=== PATIENT | male | born 1990 | race Caucasian/White ===

== ENCOUNTER 2016-07-10 23:27 | Emergency (ER) | payer SELFPAY ==
[2016-07-10 23:35] VITALS: BP 120/75; PULSE 78; RESP 20; TEMP 100.1
--- NOTE | 2016-07-11 00:11 | ED ---
General Adult HPI - General Chief complaint: Extremity Injury, Lower Stated complaint: back & leg pain Time Seen by Provider: 07/10/16 23:48 Source: patient, family, RN notes reviewed Mode of arrival: ambulatory Limitations: no limitations - History of Present Illness Initial comments: This is a 25-year-old male presents with bilateral leg pain and back pain that started on Tuesday and has gotten gradually worse. Patient states the pain is worse when he is up and walking. Patient states the pain shoots up his legs starting at the feet. Patient complains of some lower back pain. Patient denies any change in bowel or bladder function or loss of sensation to the saddle area. Patient denies any numbness/weakness or tingling. Patient is able to ambulate. Patient denies any fall or injury. Patient states he does heavy lifting at work, approximately 200 pounds per hour. Patient admits to a mild headache but denies cough, congestion, sore throat or otalgia. Patient denies any recent fever, chills, shortness breath, chest pain, abdominal pain, nausea/vomiting/diarrhea, hematuria, or visual changes, or any other complaints. - Related Data Home Medications Medication Instructions Recorded Confirmed No Known Home Medications [No 07/10/16 07/10/16 Known Home Medications] Allergies Allergy/AdvReac Type Severity Reaction Status Date / Time No Known Allergies Allergy Verified 07/10/16 23:35 Review of Systems ROS Statement: Those systems with pertinent positive or pertinent negative responses have been documented in the HPI. ROS Other: All systems not noted in ROS Statement are negative. Past Medical History Past Medical History: No Reported History History of Any Multi-Drug Resistant Organisms: None Reported Past Surgical History: No Surgical Hx Reported Past Psychological History: ADD/ADHD Smoking Status: Current every day smoker Past Alcohol Use History: Rare Past Drug Use History: Marijuana General Exam - General Exam Comments Initial Comments: General: The patient is awake and alert, in no distress, and does not appear acutely ill. Eye: Pupils are equal, round and reactive to light, extra-ocular movements are intact. No nystagmus. There is normal conjunctiva bilaterally. No signs of icterus. Ears: TMs pink and pearly with intact cone of light bilaterally. Normal external ear canals Nose: Nasal turbinates pink and moist Mouth and throat: There are moist mucous membranes and no oral lesions. No meningismus. Neck: The neck is supple, there is no tenderness or JVD. Cardiovascular: There is a regular rate and rhythm. No murmur, rub or gallop is appreciated. Respiratory: Lungs are clear to auscultation, respirations are non-labored, breath sounds are equal. No wheezes, stridor, rales, or rhonchi. Musculoskeletal: There is tenderness to palpation over the lumbar spine. There is generalized soreness to palpation of the posterior lower extremities bilaterally. Negative straight leg raise. Normal ROM. Strength 5/5. Sensation intact. Radial, posterior tibial and dorsalis pedis Pulses equal bilaterally 2+ . No swelling noted to bilateral lower extremities. Neurological: A&O x 3. CN II-XII intact, There are no obvious motor or sensory deficits. Coordination appears grossly intact. Speech is normal. Skin: Skin is warm and dry and no rashes or lesions are noted. Psychiatric: Cooperative, appropriate mood & affect, normal judgment. Limitations: no limitations Course Vital Signs 07/10/16 23:30 Temperature 100.1 F H Pulse Rate 78 Respiratory 20 Rate Blood Pressure 120/75 O2 Sat by Pulse 98 Oximetry Medical Decision Making - Medical Decision Making This is a 25-year-old male who presents with soreness in the back of his legs 5 days. On physical exam There is tenderness to palpation over the lumbar spine. There is generalized soreness to palpation of the posterior lower extremities bilaterally. Negative straight leg raise. Normal ROM. Strength 5/ 5. Sensation intact. Radial, posterior tibial and dorsalis pedis Pulses equal bilaterally 2+. Patient has a fever in the EC today. Patient was given ibuprofen in the EC today. I rechecked the patient's temperature and it was 98.0 F. X-ray lumbar spine was done and reviewed showing: #1 no acute fracture is seen in the lumbar spine. #2 minor wedge compression deformity of T11 and T12 are most likely old. #3 minor retrolisthesis of L5 on S1 vertebra of chronic nature. #4 minor degenerative changes. Reported by Dr. Adler. Influenza and rapid strep was done and both came back negative. Discussed results with patient. Discussed that this is most likely musculoskeletal pain from chronic lifting at work. Patient states he can lift up to 200 pounds an hour at work. Discussed [id number] Tylenol and or Motrin as needed for any pain. Discussed rest, ice and heat to the areas of pain. Discussed return parameters. Discussed that patient should follow-up with his primary care physician in one to 2 days or return to the EC for any worsening symptoms or for any further concerns. Patient and are receptive to this plan and patient will be discharged home. - Lab Data Lab Results 07/11/16 07/11/16 Range/Units 00:20 00:20 Influenza Type A RNA Not Detected (Not Detectd) Influenza Type B (PCR) Not Detected (Not Detectd) Group A Strep Rapid Negative (Negative) Disposition Clinical Impression: Back pain, Leg pain, Muscle pain Disposition: HOME SELF-CARE Condition: Good Instructions: Back Pain (ED) Additional Instructions: Please rest and use ice or heating pads to the areas of pain. Please continue use of Tylenol or Motrin as needed for any pain. Please follow-up with your primary care physician in one to 2 days or return to the EC for any worsening symptoms or for any further concerns. Referrals: None,Stated [Primary Care Provider] - 1-2 days Rosalee Fonseca MD [REFERRING] - 1-2 days Neda Jewell MD [STAFF PHYSICIAN] - 1-2 days Time of Disposition: 01:05
[2016-07-11] MEDS ORDERED: IBUPROFEN 400 MG TAB PO STA (00:31)
--- NOTE | 2016-07-11 00:48 | XR ---
EXAMINATION TYPE: XR lumbar spine 2 or 3V DATE OF EXAM: 07/11/2016 12:27 AM CLINICAL HISTORY: Complains of low back pain history of back injury in childhood. TECHNIQUE: Frontal, lateral images of the lumbar spine are obtained. COMPARISON: None FINDINGS: There is minor retrolisthesis of L5 on S1 vertebra and is of probably chronic nature. Minor wedge com pression deformity of T11 and T12 vertebrae are most likely old. No definite acute fracture is noted in the lumbar spine. Minor degenerative changes are suggested in the lumbar spine. IMPRESSION: 1. No acute fracture is seen in the lumbar spine. 2. Minor wedge compression deformity of T11 and T12 are most likely old. 3. Minor retrolisthesis of L5 on S1 vertebra of chronic nature. 4. Minor degenerative changes.
== END 2016-07-11 01:12 | disposition home or self-care (01) ==
LOC: EC 23:27
DX: M54.5 Low back pain (principal); M79.605 Pain in left leg; M79.604 Pain in right leg; M79.1 Myalgia; R51 Headache; F17.200 Nicotine dependence, unspecified, uncomplicated
CPT/HCPCS: 72100; 87081; 87430; 87502; 99283

== ENCOUNTER 2018-01-15 04:53 | Emergency (ER) | payer OTHER ==
[2018-01-15 04:58] VITALS: BP 137/90; PULSE 53; RESP 18; TEMP 98.4
--- NOTE | 2018-01-15 05:07 | ED ---
ENT HPI - General Chief complaint: Dental/Oral Stated complaint: Facial Swelling Time Seen by Provider: 01/15/18 05:06 Source: patient Mode of arrival: ambulatory Limitations: no limitations - History of Present Illness Initial comments: Luis is a 27-year-old male who presents to the emergency department for right- sided dental pain. Patient reports that approximately one month ago he developed dental pain and dental abscess, he was seen in an emergency dental clinic advised that he needed surgical intervention to remove a tooth, he was treated at that time with a short course of by mouth penicillin which he reports improved his symptoms significantly. Patient has not scheduled a subsequent follow-up for dental extraction because he has been asymptomatic. Patient presents to the emergency department today with report that 2 days of right-sided facial swelling and dental pain identical in nature to previous dental infection. Eyes any associated symptoms including fevers, chills, nausea or vomiting. - Related Data Previous Rx's Medication Instructions Recorded Clindamycin [Cleocin] 450 mg PO Q6H #28 capsule 01/15/18 Allergies Allergy/AdvReac Type Severity Reaction Status Date / Time No Known Allergies Allergy Verified 01/15/18 04:57 Review of Systems ROS Statement: Those systems with pertinent positive or pertinent negative responses have been documented in the HPI. ROS Other: All systems not noted in ROS Statement are negative. Past Medical History Past Medical History: No Reported History History of Any Multi-Drug Resistant Organisms: None Reported Past Surgical History: No Surgical Hx Reported Past Psychological History: ADD/ADHD Smoking Status: Current every day smoker Past Alcohol Use History: Rare Past Drug Use History: Marijuana General Exam Limitations: no limitations General appearance: alert, other (Appears uncomfortable) Head exam: Present: atraumatic, other (Swelling of the right cheek area of fluctuance noted) Eye exam: Present: PERRL ENT exam: Present: TM's normal bilaterally, other (Poor dentition, multiple dental caries, no obvious abscess, parotid gland of the right cheek is not swollen, there is no drainage) Neck exam: Present: normal inspection, full ROM. Absent: lymphadenopathy Respiratory exam: Absent: respiratory distress Cardiovascular Exam: Present: bradycardia GI/Abdominal exam: Present: soft. Absent: distended Extremities exam: Present: full ROM Neurological exam: Present: alert, oriented X3 Psychiatric exam: Present: normal affect, normal mood Skin exam: Present: warm, dry, intact, normal color Course Vital Signs 01/15/18 04:54 Temperature 98.4 F Pulse Rate 53 L Respiratory 18 Rate Blood Pressure 137/90 O2 Sat by Pulse 99 Oximetry Medical Decision Making - Medical Decision Making Patient was seen and evaluated, history is obtained from the patient She with a history of dental infection approximately one month ago treated with by mouth penicillin, was advised that he likely needs a surgical extraction of infected teeth and did not follow-up due to resolution of his symptoms today with 2 days of swelling and worsening dental pain The patient does have some mild swelling to the right cheek, no visible abscesses noted I discussed the risks and benefits of a inferior alveolar dental block with the patient, patient states that he had this type of block when he was at the dentist that offered significant relief. He is aware of the risks including permanent nerve damage, permanent anesthesia or paresthesias. Patient is agreeable to pursuing a nerve block. Inferior alveolar nerve block was performed patient reported nearly immediate improvement in his discomfort I attempted to aspirate any fluid from the area of edema however was unsuccessful First dose of by mouth clindamycin was given in the ER the patient was discharged home with a prescription for clindamycin and advised to follow up with his dentist for tentative management a tooth extraction. Return parameters including worsening of his symptoms, development of fever, drainage or new or concerning symptoms were discussed with the patient. Disposition Clinical Impression: Dental abscess Disposition: HOME SELF-CARE Condition: Stable Instructions: Dental Abscess (ED), Dental Caries (ED), Toothache (ED) Prescriptions: Clindamycin [Cleocin] 450 mg PO Q6H #28 capsule Is patient prescribed a controlled substance at d/c from ED?: No Referrals: None,Stated [Primary Care Provider] - 1-2 days
[2018-01-15] MEDS ORDERED: BUPIVACAINE (PF) 0.5% 30 ML VIAL SQ STA (05:14)
[2018-01-15] MEDS ORDERED: CLINDAMYCIN 150 MG CAP PO STA (05:25)
== END 2018-01-15 05:41 | disposition home or self-care (01) ==
LOC: EC 04:53
DX: K04.7 Periapical abscess without sinus (principal); F17.200 Nicotine dependence, unspecified, uncomplicated
CPT/HCPCS: 64400; 99283

== ENCOUNTER 2020-02-11 19:00 | Emergency (ER) | payer BC ==
[2020-02-11 19:07] VITALS: RESP 18
[2020-02-11 20:09] LABS: Basophils # (A) 0.1 k/uL (0-0.2); Basophils % (A) 1 %; Eosinophils # (A) 0.3 k/uL (0-0.7); Eosinophils % (A) 3 %; HCT 45.1 % (39.0-53.0); HGB 15.1 gm/dL (13.0-17.5); Lymphocytes # (A) 2.3 k/uL (1.0-4.8); Lymphocytes % (A) 22 %; MCH 28.7 pg (25.0-35.0); MCHC 33.5 g/dL (31.0-37.0); MCV 85.8 fL (80.0-100.0); Mean Platelet Volume 7.2; Monocytes # (A) 0.7 k/uL (0-1.0); Monocytes % (A) 7 %; Neutrophils # (A) 7.1 k/uL (1.3-7.7); Neutrophils % (A) 67 %; Platelet Count 390 k/uL (150-450); RBC 5.26 m/uL (4.30-5.90); RDW 12.2 % (11.5-15.5); WBC 10.7 k/uL (3.8-10.6)
[2020-02-11 20:26] LABS: ALT 18 U/L (4-49); AST 23 U/L (17-59); African American GFR (CKD) >90 (>60 ml/min/1.73 sqM); Albumin 4.3 g/dL (3.5-5.0); Alkaline Phosphatase 89 U/L (38-126); Anion Gap 7 mmol/L; Blood Urea Nitrogen 14 mg/dL (9-20); Calcium 9.8 mg/dL (8.4-10.2); Carbon Dioxide 29 mmol/L (22-30); Chloride 104 mmol/L (98-107); Glucose 91 mg/dL (74-99); Non-African American GFR(CKD) >90 (>60 ml/min/1.73 sqM); Potassium 4.4 mmol/L (3.5-5.1); Sodium 140 mmol/L (137-145); Total Bilirubin 0.3 mg/dL (0.2-1.3); Total Protein 7.5 g/dL (6.3-8.2)
--- NOTE | 2020-02-11 21:05 | XR ---
EXAMINATION TYPE: XR knee 4V RT DATE OF EXAM: 02/11/2020 COMPARISON: NONE HISTORY: Knee pain TECHNIQUE: 4 views FINDINGS: I see no fracture nor dislocation. Joint spaces are normal. There is no sign of knee joint effusion. IMPRESSION: Negative right knee exam. No fracture seen.
--- NOTE | 2020-02-11 21:09 | US ---
EXAMINATION TYPE: US venous doppler duplex LE DATE OF EXAM: 02/11/2020 9:02 PM COMPARISON: NONE CLINICAL HISTORY: pain. Pain in bilateral legs x 1 week. No hx of DVT. Patient is not taking blood th inners. SIDE PERFORMED: Bilateral TECHNIQUE: The lower extremity deep venous system is examined utilizing real time linear array sonog mynor with graded compression, doppler sonography and color-flow sonography. VESSELS IMAGED: External Iliac Vein (EIV) Common Femoral Vein Deep Femoral Vein Greater Saphenous Vein * Femoral Vein Popliteal Vein Small Saphenous Vein * Proximal Calf Veins (* superficial vessels) Right Leg: No evidence of DVT in veins imaged at this time from prox calf veins to EIV. Left Leg: No evidence of DVT in veins imaged at this time from prox calf veins to EIV. IMPRESSION: No sign of deep vein thrombosis in both legs.
--- NOTE | 2020-02-11 22:28 | ED ---
General Adult HPI - General Chief complaint: Extremity Injury, Lower Stated complaint: bilat leg swelling Time Seen by Provider: 02/11/20 19:18 Source: patient, RN notes reviewed, old records reviewed Mode of arrival: ambulatory Limitations: no limitations - History of Present Illness Initial comments: 29-year-old male patient presents to ED for evaluation. Patient reports that about 2 weeks ago he had a fall from standing restrained his back. Patient reports that he went to the [facility] where he was diagnosed with a disc herniation of T7 and T8. Patient reports that his back is no longer causing him any pain however he reports that after standing up for a period of time that he is having some swelling in his legs. Patient reports that he was talking to his friends about this and is concerned about having a blood clot. Patient denies any paresthesias or. Weakness loss of bowel or bladder control back pain. Denies any chest pain or shortness of breath. Patient reports that his left anterior knee has been a little uncomfortable for him recently with this is mild and he is ambulatory without difficulty. Systemic: Pt denies fatigue, fever/chills, rash. Pt denies weakness, night sweats, weight loss. Neuro: Pt denies headache, visual disturbances, syncope or pre-syncope. HEENT: Pt denies ocular discharge or irritation, otalgia, rhinorrhea, pharyngitis or notable lymphadenopathy. Cardiopulmonary: Pt denies chest pain, SOB, heart palpitations, dyspnea on exertion. Abdominal/GI: Pt denies abdominal pain, n/v/d. : Pt denies dysuria, burning w/ urination, frequency/urgency. Denies new onset urinary or bowel incontinence. MSK: Pt denies loss of strength or function in extremities. Neuro: Pt denies new onset weakness, paresthesias. - Related Data Previous Rx's Medication Instructions Recorded Clindamycin [Cleocin] 450 mg PO Q6H #28 capsule 01/15/18 Allergies Allergy/AdvReac Type Severity Reaction Status Date / Time No Known Allergies Allergy Verified 02/11/20 19:07 Review of Systems ROS Statement: Those systems with pertinent positive or pertinent negative responses have been documented in the HPI. ROS Other: All systems not noted in ROS Statement are negative. Past Medical History Past Medical History: No Reported History History of Any Multi-Drug Resistant Organisms: None Reported Past Surgical History: No Surgical Hx Reported Past Psychological History: ADD/ADHD Smoking Status: Current every day smoker Past Alcohol Use History: None Reported Past Drug Use History: Marijuana General Exam - General Exam Comments Initial Comments: Constitutional: NAD, AOX3, Pt has pleasant affect. HEENT: NC/AT, trachea midline, neck supple, no lymphadenopathy. External ears appear normal, without discharge. Mucous membranes moist. Eyes PERRLA, EOM intact. There is no scleral icterus. No pallor noted. Cardiopulmonary: RRR, no murmurs, rubs or gallops, no JVD noted. Lungs CTAB in anterior and posterior mcdowell. No peripheral edema. Abdominal exam: Abdomen soft and non-distended. Abdomen non-tender to palpation in all 4 quadrants. Bowel sounds active in LLQ. No hepatosplenomegaly. No ecchymosis Neuro: CN II-XII grossly intact. No cervical spinal tenderness. MSK: Mild tenderness to left anterior knee. Ambulatory without difficulty. Full active range of motion of the knee. Heel to toe walking is intact. No posterior calf tenderness bilaterally, homans sign negative bilaterally. Posterior tibialis and radial pulse +2 bilaterally. Sensation intact in upper a nd lower extremities. Full active ROM in upper and lower extremities, 5/5 stregnth. Thoracic and lumbar spine nontender Limitations: no limitations Course Vital Signs 02/11/20 02/11/20 02/11/20 19:04 21:43 22:40 Temperature 98.1 F 98.7 F Pulse Rate 89 67 66 Respiratory 18 18 18 Rate Blood Pressure 129/83 123/67 131/68 O2 Sat by Pulse 99 98 96 Oximetry Medical Decision Making - Medical Decision Making 29-year-old male patient is ED for evaluation of lower extremity swelling, knee pain. Patient vital signs are stable, afebrile. Physical exam is fully mild left anterior knee tenderness. Full active range of motion. Laboratory investigations nonimpressive. Ultrasound negative for DVT. Plain film negative for any acute knee fracture. Range of motion intact and ambulatory without difficulty. I reviewed CT report from attends a which displayed a left paracentral disc herniation at T7-T8 which does not cause any obvious canal compromise. Plain films from the [facility] did not display any fracture. Patient is now also complainting of some mild left great toe pain, second [place] distally. Patient wishes to decline any imaging on this and wants to monitor. No dorsal foot tenderness, no midfoot tenderness. Patient reports that he has an appointment with his primary care provider in 3 days he'll follow up with her initially. Patient also be given orthopedic follow-up for his knee pain will return here if any worsening symptoms. Case discssed with Dr Ayala, - Lab Data Result diagrams: 02/11/20 19:44 02/11/20 19:44 Lab Results 02/11/20 02/11/20 Range/Units 19:44 19:44 WBC 10.7 H (3.8-10.6) k/uL RBC 5.26 (4.30-5.90) m/uL Hgb 15.1 (13.0-17.5) gm/dL Hct 45.1 (39.0-53.0) % MCV 85.8 (80.0-100.0) fL MCH 28.7 (25.0-35.0) pg MCHC 33.5 (31.0-37.0) g/dL RDW 12.2 (11.5-15.5) % Plt Count 390 (150-450) k/uL Neutrophils % 67 % Lymphocytes % 22 % Monocytes % 7 % Eosinophils % 3 % Basophils % 1 % Neutrophils # 7.1 (1.3-7.7) k/uL Lymphocytes # 2.3 (1.0-4.8) k/uL Monocytes # 0.7 (0-1.0) k/uL Eosinophils # 0.3 (0-0.7) k/uL Basophils # 0.1 (0-0.2) k/uL Sodium 140 (137-145) mmol/L Potassium 4.4 (3.5-5.1) mmol/L Chloride 104 (98-107) mmol/L Carbon Dioxide 29 (22-30) mmol/L Anion Gap 7 mmol/L BUN 14 (9-20) mg/dL Creatinine 0.94 (0.66-1.25) mg/dL Est GFR (CKD-EPI)AfAm >90 (>60 ml/min/1.73 sqM) Est GFR (CKD-EPI)NonAf >90 (>60 ml/min/1.73 sqM) Glucose 91 (74-99) mg/dL Calcium 9.8 (8.4-10.2) mg/dL Total Bilirubin 0.3 (0.2-1.3) mg/dL AST 23 (17-59) U/L ALT 18 (4-49) U/L Alkaline Phosphatase 89 (38-126) U/L Total Protein 7.5 (6.3-8.2) g/dL Albumin 4.3 (3.5-5.0) g/dL Disposition Clinical Impression: Knee pain, Fall Disposition: HOME SELF-CARE Condition: Stable Instructions (If sedation given, give patient instructions): Knee Pain (ED) Additional Instructions: follow-up with primary care provider tomorrow. Follow-up with orthopedic consult tomorrow. Return to ER if any worsening symptoms. Is patient prescribed a controlled substance at d/c from ED?: No Referrals: None,Stated [Primary Care Provider] - 1-2 days Lukas Rios DO [Doctor of Osteopathic Medicine] - 1-2 days
[2020-02-11 22:42] VITALS: BP 131/68; PULSE 66; TEMP 98.7
== END 2020-02-11 22:41 | disposition home or self-care (01) ==
LOC: EC 19:00
DX: M25.561 Pain in right knee (principal); M79.89 Other specified soft tissue disorders; M51.24 Other intervertebral disc displacement, thoracic region; M79.675 Pain in left toe(s); F17.200 Nicotine dependence, unspecified, uncomplicated
CPT/HCPCS: 36415; 80053; 85025; 93970; 99284

== ENCOUNTER 2020-12-11 23:03 | Emergency (ER) | payer BC ==
[2020-12-11 23:19] VITALS: BP 132/83; PULSE 80; RESP 19; TEMP 98.3
[2020-12-11] MEDS ORDERED: predniSONE 20 MG TAB PO STA (23:58)
[2020-12-11] MEDS ORDERED: FAMOTIDINE 20 MG TAB PO STA (23:58)
[2020-12-11] MEDS ORDERED: diphenhydrAMINE 50 MG CAP PO STA (23:58)
[2020-12-12] MEDS ORDERED: HYDROCORTISONE 1% CREAM 30 GM TUBE TOPICAL ONE
--- NOTE | 2020-12-12 00:39 | ED ---
Skin/Abscess/FB HPI - General Chief complaint: Extremity Problem,Nontraumatic Stated complaint: Ankle swelling Time Seen by Provider: 12/11/20 23:31 Source: patient, RN notes reviewed, old records reviewed Mode of arrival: ambulatory Limitations: no limitations - History of Present Illness Initial comments: This is a 30-year-old male DF for evaluation. Patient comes in mainly complaining of rash. Ration is located in multiple places. He has ration his head face back of his neck. Symptoms other exposed areas of his body, arms. 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 Patient is unsure of but that may be. Patient has otherwise no recent travel history no sick contacts no fevers he also notices some mild swelling is extremities MD complaint: rash, insect bite/sting, lesion -: days(s) Tetanus Up to Date: yes Location: head, neck, LUE, RUE Severity: mild Severity scale (1-10): 3 Quality: other (Itching) Consistency: constant Improves with: none Worsens with: none Context: witnessed insect bite Associated symptoms: denies other symptoms Treatments Prior to Arrival: none - Related Data Previous Rx's Medication Instructions Recorded Clindamycin [Cleocin] 450 mg PO Q6H #28 capsule 01/15/18 Doxycycline Monohydrate [Monodox] 100 mg PO Q12HR #20 cap 12/12/20 Famotidine [Pepcid] 20 mg PO BID #28 tablet 12/12/20 diphenhydrAMINE [Benadryl] 50 mg PO QID PRN #20 capsule 12/12/20 predniSONE 50 mg PO DAILY #5 tab 12/12/20 Allergies Allergy/AdvReac Type Severity Reaction Status Date / Time No Known Allergies Allergy Verified 12/11/20 23:19 Review of Systems ROS Statement: Those systems with pertinent positive or pertinent negative responses have been documented in the HPI. ROS Other: All systems not noted in ROS Statement are negative. Past Medical History Past Medical History: No Reported History History of Any Multi-Drug Resistant Organisms: None Reported Past Surgical History: No Surgical Hx Reported Past Psychological History: ADD/ADHD Smoking Status: Current every day smoker Past Alcohol Use History: None Reported Past Drug Use History: Marijuana General Exam - General Exam Comments Initial Comments: Patient has multiple rash erythematous raised urticaria areas that are blanchable. General appearance: alert, in no apparent distress Head exam: Present: atraumatic, normocephalic, normal inspection Eye exam: Present: normal appearance, PERRL, EOMI. Absent: scleral icterus, conjunctival injection, periorbital swelling ENT exam: Present: normal exam, mucous membranes moist Neck exam: Present: normal inspection. Absent: tenderness, meningismus, lymphadenopathy Respiratory exam: Present: normal lung sounds bilaterally. Absent: respiratory distress, wheezes, rales, rhonchi, stridor Cardiovascular Exam: Present: regular rate, normal rhythm, normal heart sounds. Absent: systolic murmur, diastolic murmur, rubs, gallop, clicks GI/Abdominal exam: Present: soft, normal bowel sounds. Absent: distended, tenderness, guarding, rebound, rigid Extremities exam: Present: normal inspection, full ROM, normal capillary refill. Absent: tenderness, pedal edema, joint swelling, calf tenderness Back exam: Present: normal inspection Neurological exam: Present: alert, oriented X3, CN II-XII intact Psychiatric exam: Present: normal affect, normal mood Skin exam: Present: warm, dry, intact, normal color. Absent: rash Course Vital Signs 12/11/20 23:17 Temperature 98.3 F Pulse Rate 80 Respiratory 19 Rate Blood Pressure 132/83 O2 Sat by Pulse 98 Oximetry - Reevaluation(s) Reevaluation #1: 12/12/20 01:12 Medical record is reviewed Reevaluation #2: 12/12/20 01:12 Patient symptoms are improved Reevaluation #3: 12/12/20 01:12 Informed results and questions answered Medical Decision Making - Medical Decision Making 30 male DF for evaluation patient is multiple different lesions which may be insect bites. Patient placed on antihistamines as well as antibiotics to follow primary care regarding progression of rash. At this time patient otherwise feels well Disposition Clinical Impression: Rash, Allergic reaction, Bug bites, Urticaria Disposition: HOME SELF-CARE Condition: Good Instructions (If sedation given, give patient instructions): Urticaria (ED) Prescriptions: diphenhydrAMINE [Benadryl] 50 mg PO QID PRN #20 capsule PRN Reason: itching/rash Doxycycline Monohydrate [Monodox] 100 mg PO Q12HR #20 cap Famotidine [Pepcid] 20 mg PO BID #28 tablet predniSONE 50 mg PO DAILY #5 tab Is patient prescribed a controlled substance at d/c from ED?: No Referrals: Scooter Quezada MD [Primary Care Provider] - 1-2 days
== END 2020-12-12 01:15 | disposition home or self-care (01) ==
LOC: EC 23:03
DX: S00.86XA Insect bite (nonvenomous) of other part of head, initial encounter (principal); S10.96XA Insect bite of unspecified part of neck, initial encounter; S40.862A Insect bite (nonvenomous) of left upper arm, initial encounter; S40.861A Insect bite (nonvenomous) of right upper arm, initial encounter; L50.0 Allergic urticaria; F17.200 Nicotine dependence, unspecified, uncomplicated; F12.90 Cannabis use, unspecified, uncomplicated; W57.XXXA Bitten or stung by nonvenomous insect and other nonvenomous arthropods, initial encounter
CPT/HCPCS: 99282; J7512

== ENCOUNTER → 2021-10-06 | Outpatient (CLI) | payer BC ==
--- NOTE | 2021-10-06 13:14 | XR ---
EXAMINATION TYPE: XR orbit detect foreign body DATE OF EXAM: 10/06/2021 COMPARISON: NONE HISTORY: Pre-MRI orbits TECHNIQUE: 3 views submitted FINDINGS: No metallic foreign body overlying the orbits. Nasal septal deviation noted correlate for c hronic sinusitis. Osseous structures intact. IMPRESSION: No metallic foreign body overlying the orbits.
--- NOTE | 2021-10-06 13:15 | XR ---
EXAMINATION TYPE: XR skull limited DATE OF EXAM: 10/06/2021 COMPARISON: NONE HISTORY: Pre-MRI TECHNIQUE: 2 view submitted FINDINGS: No metallic density overlying the orbits and calvarium. Dental work incidentally noted. Oss eous structures intact. Nasal septal deviation noted. IMPRESSION: No metallic foreign body overlying the skull or orbits.
--- NOTE | 2021-10-07 06:41 | MR ---
EXAMINATION TYPE: MR lumbar spine wo con DATE OF EXAM: 10/06/2021 COMPARISON: None HISTORY: R side low back pain Multiplanar multiecho imaging of the lumbar spine without contrast. The vertebra have Normal alignment. Disc spaces are fairly normal. No compression fracture. Posterior elements are intact. No evidence of focal bone destruction. No evidence of spinal stenosis. There is minimal posterior disc bulging at L3-4. There is developmentally adequate spinal canal. No lumbar pa raspinal mass. Lumbar nerve roots appear normal. The neural foramina appear widely patent. IMPRESSION: Minor degenerative disc changes. No fracture. No spinal stenosis.
== END | disposition home or self-care (01) ==
LOC: RADMRIMAIN 12:10
PROVIDERS: ATTEND Nurse Practitioner Family
DX: M51.36 Other intervertebral disc degeneration, lumbar region (principal)
CPT/HCPCS: 70030; 70250; 72148